=== PATIENT | male | born 1960 | race Caucasian/White ===

== ENCOUNTER 2016-08-22 10:06 | Emergency (ER) | payer OTHER ==
--- NOTE | 2016-08-22 10:57 | DIAGNOSTIC IMAGING REPORT ---
PROCEDURE: XR RIBS UNILAT W/PA CHEST-RT INDICATION: TRAUMA/INJURY TECHNIQUE: Two views of the right ribs with single PA view chest. COMPARISON: None. FINDINGS: RIGHT RIBS: Fractures of the right tenth and eleventh ribs. No displacement. CHEST: Normal cardiomediastinal contour. Clear lungs without pleural effusion, pneumothorax, or contusion. There is an old healed fracture of the right tenth rib proximal to the current fracture. IMPRESSION: 1. Fractures of the right tenth and eleventh ribs.
--- NOTE | 2016-08-22 11:40 | ED NURSING NOTES ---
Clinical Report - Nurses [facility] [place] [address] 08/22/2016 10:09 [id number] Triage time 10:15. Acuity: LEVEL 4. Chief Complaint: FALL. --10:20 Charo Miguel R.N. 10:15 08/22/16. BP: 192/103. HR: 102. RR: 18. O2 saturation: 99%. Temp: 98.2 F. Pain level now: 11/26. --10:20 Charo Miguel R.N. Weight: 95.2 kg stated. Height/Length: 70 inches Per Patient. BMI: 30.1. --10:20 Charo Miguel R.N. Medications Ibuprofen Oral. --10:17 Charo Miguel R.N. Allergies No Known Drug Allergy. --10:18 Charo Miguel R.N. History Arrived by private vehicle. Historian: patient. Accompanied by family. ( Right mid flank/rib pain after fall 7 days ago, landing on [employer] box. Pt reports sneezing last night and feeling a pop, followed by excruciating 10/10 pain.). Trauma activation: Pre-hospital notification of patient arrival was not received. PAST MEDICAL HX: Tetanus status: up-to-date. SOCIAL HX: Alcohol use; consumes beer occasionally. No drug use. No infectious disease exposure. ABUSE ASSESSMENT: No report of abuse. FALL RISK ASSESSMENT: Fall risk assessment completed. No fall risk identified. NUTRITIONAL RISK ASSESSMENT: The nutritional risk assessment revealed no deficiencies. FUNCTIONAL ASSESSMENT: Functional assessment: no impairments noted. LEARNING NEEDS ASSESSMENT: The learning needs assessment revealed no barriers. SKIN INTEGRITY ASSESSMENT: Skin integrity risk assessment completed. No skin integrity risk identified. --10:20 Charo Miguel R.N. PROBLEMS: Nephrolithiasis. --10:19 Charo Miguel R.N. Interventions To treatment room. --10:20 Charo Miguel R.N. PHYSICAL ASSESSMENT GENERAL / NEURO / PSYCH: Alert. Oriented X 4. Appears in no acute distress. Appears in pain. RESPIRATORY: Chest wall tenderness. Decreased breath sounds. EXTREMITIES: Neuro-vascular status intact to the extremity. SKIN: Skin is warm and dry. BACK: ROM of the back is painless. Limited ROM in the back. ( right mid to lower ribs in the back). --10:26 Charo Miguel R.N. NURSING PROGRESS NOTES Reassurance given. Call light placed in reach. Patient waiting for evaluation. --10:20 Charo Miguel R.N. DISPOSITION / DISCHARGE Departure time: 1147. No learning barriers present. Discharge instructions provided and reviewed with the patient and family. Reviewed warnings (take slow, deep breaths hourly to avoid pna. do not bind ribs with lilly bandage). Reviewed medication(s) side effects, dosing and course information. Reviewed referrals. Patient and family verbalized understanding. Written instructions provided in Slovak. The patient was discharged by the physician. He was discharged home and accompanied by family. He left the Emergency Department ambulatory and via private vehicle. Family member driving. --11:49 Charo Miguel R.N. 11:48 08/22/16. BP: 178/96. HR: 92. RR: 18. O2 saturation: 99%. Pain level now: 07/27. --11:49 Charo Miguel R.N. Condition at departure: unchanged and stable. --11:49 Charo Miguel R.N. Locked/Released at 08/22/2016 11:50 by Charo Miguel R.N.
--- NOTE | 2016-08-22 11:40 | ED CLINICAL REPORT ---
Clinical Report - Physicians/Mid Levels [facility] [address] [place] [address] 08/22/2016 10:09 [id number] Time Seen: 10:15; initial patient contact. Arrived- By private vehicle. Historian- patient. HISTORY OF PRESENT ILLNESS Location of injuries- chest and mid back. Chief Complaint: Injury to CHEST and BACK. The injury occurred 1 week ago. Occurred at home. Fell while walking (slipped and struck R posterior lower ribs on a planter). The patient complains of moderate pain. No blow to the head, neck pain or loss of consciousness. Not dazed. REVIEW OF SYSTEMS No numbness, chest pain or laceration. He has had mild difficulty breathing. All systems otherwise negative, except as recorded above. PAST HISTORY Nephrolithiasis. Surgeries: No history of previous surgery. Medications: Ibuprofen Oral. Allergies: No Known Drug Allergy. SOCIAL HISTORY Never smoker. Occasional alcohol use. No drug use. ADDITIONAL NOTES The nursing notes have been reviewed. PHYSICAL EXAM Vital Signs: 08/22/2016 10:15 BP: 192/103. HR: 102. RR: 18. O2 saturation: 99%. Temp: 98.2 F. Pain level now: 1010. Have been reviewed. Hypertensive. Tachycardic. Respiratory rate normal. Temperature normal. Oxygen saturation normal. Appearance: Alert. Oriented X3. Neck: Painless ROM. CVS: Heart sounds normal. Rate normal. Rhythm normal. Respiratory: No respiratory distress. Chest wall injury: moderate tenderness and small ecchymosis located in the middle, right and posterior chest. No swelling. No laceration. No abrasion. No deformity. No splinting present. No paradoxical movement. Breath sounds normal. Back: No vertebral point tenderness. Skin: Skin intact. Skin warm and dry. Neuro: Oriented X 3. LABS, X-RAYS, AND EKG Sternum / Ribs X-rays: On the right, 10th and 11th rib fracture(s) present posteriorly. Views: right ribs. PA of chest. Technique: good. The X-rays were independently viewed by me and interpreted contemporaneously by me. Prior films were not available for comparison. Interpretation time: 11:05. PROGRESS AND PROCEDURES Disposition: Discharged home in good and improved condition. Condition: good. CLINICAL IMPRESSION Multiple right rib fractures (10 and 11). INSTRUCTIONS Apply ice for 20 minutes followed by heat 20 minutes until better. Don't apply ice directly to skin. Do not work (Off work 08/23/16 and 08/24/16). Your Current Medications: STOP TAKING THE FOLLOWING MEDICATIONS: Ibuprofen Oral. Prescription Medications: Hydrocodone/APAP 5mg / 325mg: take 1 orally every 6 hours as needed for pain. Dispense twenty (20). No refill. (Do not take while driving) Diclofenac 50 mg tablets: take 1 tablet orally every 8 hours as needed for pain or stiffness. Dispense thirty (30). No refill. Follow-up: Follow up with your doctor in about three days. Call for an appointment. Screening today revealed the patient's blood pressure to be in the hypertensive range. The patient should follow up with a primary care provider for blood pressure management. (Electronically signed by Shlomo Johnson Dr. 08/22/2016 15:10)
--- NOTE | 2016-08-22 11:40 | ED CLINICAL REPORT ---
Clinical Report - Physicians/Mid Levels [facility] [address] [place] [address] 08/22/2016 10:09 [id number] Time Seen: 10:15; initial patient contact. Arrived- By private vehicle. Historian- patient. HISTORY OF PRESENT ILLNESS Location of injuries- chest and mid back. Chief Complaint: Injury to CHEST and BACK. The injury occurred 1 week ago. Occurred at home. Fell while walking (slipped and struck R posterior lower ribs on a planter). The patient complains of moderate pain. No blow to the head, neck pain or loss of consciousness. Not dazed. REVIEW OF SYSTEMS No numbness, chest pain or laceration. He has had mild difficulty breathing. All systems otherwise negative, except as recorded above. PAST HISTORY Nephrolithiasis. Surgeries: No history of previous surgery. Medications: Ibuprofen Oral. Allergies: No Known Drug Allergy. SOCIAL HISTORY Never smoker. Occasional alcohol use. No drug use. ADDITIONAL NOTES The nursing notes have been reviewed. PHYSICAL EXAM Vital Signs: 08/22/2016 10:15 BP: 192/103. HR: 102. RR: 18. O2 saturation: 99%. Temp: 98.2 F. Pain level now: 1010. Have been reviewed. Hypertensive. Tachycardic. Respiratory rate normal. Temperature normal. Oxygen saturation normal. Appearance: Alert. Oriented X3. Neck: Painless ROM. CVS: Heart sounds normal. Rate normal. Rhythm normal. Respiratory: No respiratory distress. Chest wall injury: moderate tenderness and small ecchymosis located in the middle, right and posterior chest. No swelling. No laceration. No abrasion. No deformity. No splinting present. No paradoxical movement. Breath sounds normal. Back: No vertebral point tenderness. Skin: Skin intact. Skin warm and dry. Neuro: Oriented X 3. LABS, X-RAYS, AND EKG Sternum / Ribs X-rays: On the right, 10th and 11th rib fracture(s) present posteriorly. Views: right ribs. PA of chest. Technique: good. The X-rays were independently viewed by me and interpreted contemporaneously by me. Prior films were not available for comparison. Interpretation time: 11:05. PROGRESS AND PROCEDURES Disposition: Discharged home in good and improved condition. Condition: good. CLINICAL IMPRESSION Multiple right rib fractures (10 and 11). INSTRUCTIONS Apply ice for 20 minutes followed by heat 20 minutes until better. Don't apply ice directly to skin. Do not work (Off work 08/23/16 and 08/24/16). Your Current Medications: STOP TAKING THE FOLLOWING MEDICATIONS: Ibuprofen Oral. Prescription Medications: Hydrocodone/APAP 5mg / 325mg: take 1 orally every 6 hours as needed for pain. Dispense twenty (20). No refill. (Do not take while driving) Diclofenac 50 mg tablets: take 1 tablet orally every 8 hours as needed for pain or stiffness. Dispense thirty (30). No refill. Follow-up: Follow up with your doctor in about three days. Call for an appointment. Screening today revealed the patient's blood pressure to be in the hypertensive range. The patient should follow up with a primary care provider for blood pressure management. (Electronically signed by Shlomo Johnson Dr. 08/22/2016 15:10)
--- NOTE | 2016-08-22 11:40 | ED NURSING NOTES ---
Clinical Report - Nurses [facility] [place] [address] 08/22/2016 10:09 [id number] TRI[facility] Triage time 10:15. Acuity: LEVEL 4. Chief Complaint: FALL. --10:20 Charo Miguel R.N. 10:15 08/22/16. BP: 192/103. HR: 102. RR: 18. O2 saturation: 99%. Temp: 98.2 F. Pain level now: 11/26. --10:20 Charo Miguel R.N. Weight: 95.2 kg stated. Height/Length: 70 inches Per Patient. BMI: 30.1. --10:20 Charo Miguel R.N. Medications Ibuprofen Oral. --10:17 Charo Miguel R.N. Allergies No Known Drug Allergy. --10:18 Charo Miguel R.N. History Arrived by private vehicle. Historian: patient. Accompanied by family. ( Right mid flank/rib pain after fall 7 days ago, landing on [employer] box. Pt reports sneezing last night and feeling a pop, followed by excruciating 10/10 pain.). Trauma activation: Pre-hospital notification of patient arrival was not received. PAST MEDICAL HX: Tetanus status: up-to-date. SOCIAL HX: Alcohol use; consumes beer occasionally. No drug use. No infectious disease exposure. ABUSE ASSESSMENT: No report of abuse. FALL RISK ASSESSMENT: Fall risk assessment completed. No fall risk identified. NUTRITIONAL RISK ASSESSMENT: The nutritional risk assessment revealed no deficiencies. FUNCTIONAL ASSESSMENT: Functional assessment: no impairments noted. LEARNING NEEDS ASSESSMENT: The learning needs assessment revealed no barriers. SKIN INTEGRITY ASSESSMENT: Skin integrity risk assessment completed. No skin integrity risk identified. --10:20 Charo Miguel R.N. PROBLEMS: Nephrolithiasis. --10:19 Charo Miguel R.N. Interventions To treatment room. --10:20 Charo Miguel R.N. PHYSICAL ASSESSMENT GENERAL / NEURO / PSYCH: Alert. Oriented X 4. Appears in no acute distress. Appears in pain. RESPIRATORY: Chest wall tenderness. Decreased breath sounds. EXTREMITIES: Neuro-vascular status intact to the extremity. SKIN: Skin is warm and dry. BACK: ROM of the back is painless. Limited ROM in the back. ( right mid to lower ribs in the back). --10:26 Charo Miguel R.N. NURSING PROGRESS NOTES Reassurance given. Call light placed in reach. Patient waiting for evaluation. --10:20 Charo Miguel R.N. DISPOSITION / DISCHARGE Departure time: 1147. No learning barriers present. Discharge instructions provided and reviewed with the patient and family. Reviewed warnings (take slow, deep breaths hourly to avoid pna. do not bind ribs with lilly bandage). Reviewed medication(s) side effects, dosing and course information. Reviewed referrals. Patient and family verbalized understanding. Written instructions provided in Portuguese. The patient was discharged by the physician. He was discharged home and accompanied by family. He left the Emergency Department ambulatory and via private vehicle. Family member driving. --11:49 Charo Miguel R.N. 11:48 08/22/16. BP: 178/96. HR: 92. RR: 18. O2 saturation: 99%. Pain level now: 07/27. --11:49 Charo Miguel R.N. Condition at departure: unchanged and stable. --11:49 Charo Miguel R.N. Locked/Released at 08/22/2016 11:50 by Charo Miguel R.N.
--- NOTE | 2016-08-22 11:40 | ED ORDER SUMMARY ---
..... Patient: MELISSA MCDOWELL OrderSheet [facility] VisitID: [id number] [address] [place] [address] 55y, M Registration Date/Time: 08/22/2016 ORDER SHEET Weight: 95.2 kg (stated) Allergies: No Known Drug Allergy GENERAL ORDERS: Ribs Unilat w PA Chest Right Urgent (10:24 08/22/2016 Abraham Mcdaniels) (Ack 10:33 Roderick) (10:40 Roderick) MEDICATION ORDERS: IV FLUIDS: ORDER SHEET NOTES: [Electronically signed by Charo Miguel R.N. (11:50 08/22/2016)] [Electronically signed by Shlomo Johnson Dr. (15:10 08/22/2016)] [Electronically locked/signed by Charo Miguel R.N. (11:50 08/22/2016)]
--- NOTE | 2016-08-22 11:40 | ED ORDER SUMMARY ---
..... Patient: MELISSA MCDOWELL OrderSheet [facility] VisitID: [id number] [address] [place] [address] 55y, M Registration Date/Time: 08/22/2016 ORDER SHEET Weight: 95.2 kg (stated) Allergies: No Known Drug Allergy GENERAL ORDERS: Ribs Unilat w PA Chest Right Urgent (10:24 08/22/2016 Abraham Mcdaniels) (Ack 10:33 Roderick) (10:40 Roderick) MEDICATION ORDERS: IV FLUIDS: ORDER SHEET NOTES: [Electronically signed by Charo Miguel R.N. (11:50 08/22/2016)] [Electronically signed by Shlomo Johnson Dr. (15:10 08/22/2016)] [Electronically locked/signed by Charo Miguel R.N. (11:50 08/22/2016)]
--- NOTE | 2016-08-22 15:10 | ED MED RECONCILIATION SUMMARY ---
Patient: MELISSA MCDOWELL Medication Reconciliation Report [facility] VisitID: [id number] [address] [place] [address] 55y, M Registration Date/Time: 08/22/2016 Weight: 95.2 kg Height/Length: 70 in. BMI: 30.1 ALLERGIES: No Known Drug Allergy The patient's Home Medications are listed below: STOP TAKING THE FOLLOWING MEDICATIONS: Ibuprofen Oral The source(s) of the original Home Medication information: Not obtained. The following Medications were given to the patient in the Emergency Department: None. The following Medications were prescribed to the patient: Hydrocodone/APAP 5mg / 325mg: take 1 orally every 6 hours as needed for pain. Dispense twenty (20). No refill.(Do not take while driving) -- Shlomo Johnson Dr. Diclofenac 50 mg tablets: take 1 tablet orally every 8 hours as needed for pain or stiffness. Dispense thirty (30). No refill. -- Shlomo Johnson Dr.
--- NOTE | 2016-08-22 15:10 | ED DISCHARGE INSTRUCTIONS ---
Patient: MELISSA MCDOWELL General Instructions [facility] VisitID: [id number] [place] [address] 55y, M Registration Date/Time: 08/22/2016 Multiple right rib fractures (10 and 11). INSTRUCTIONS Apply ice for 20 minutes followed by heat 20 minutes until better. Don't apply ice directly to skin. Do not work (Off work 08/23/16 and 08/24/16). Your Current Medications: STOP TAKING THE FOLLOWING MEDICATIONS: Ibuprofen Oral. Prescription Medications: Hydrocodone/APAP 5mg / 325mg: take 1 orally every 6 hours as needed for pain. Dispense twenty (20). No refill. (Do not take while driving) Diclofenac 50 mg tablets: take 1 tablet orally every 8 hours as needed for pain or stiffness. Dispense thirty (30). No refill. Follow-up: Follow up with your doctor in about three days. Call for an appointment. Screening today revealed the patient's blood pressure to be in the hypertensive range. The patient should follow up with a primary care provider for blood pressure management. ADDITIONAL INFORMATION Hydrocodone Bitartrate, Acetaminophen Oral tablet What is this medicine? ACETAMINOPHEN; HYDROCODONE (a set a ALYSSA fabian fen; violetta droe KOE done) is a pain reliever. It is used to treat mild to moderate pain. How should I use this medicine? Take this medicine by mouth. Swallow it with a full glass of water. Follow the directions on the prescription label. If the medicine upsets your stomach, take the medicine with food or milk. Do not take more than you are told to take. Talk to your pecan picker regarding the use of this medicine in children. This medicine is not approved for use in children. What side effects may I notice from receiving this medicine? Side effects that you should report to your doctor or health rn complex care as soon as possible: allergic reactions like skin rash, itching or hives, swelling of the face, lips, or tongue breathing problems confusion feeling faint or lightheaded, falls stomach pain yellowing of the eyes or skin Side effects that usually do not require medical attention (report to your doctor or health rn complex care if they continue or are bothersome): nausea, vomiting stomach upset What may interact with this medicine? alcohol antihistamines isoniazid medicines for depression, anxiety, or psychotic disturbances medicines for sleep muscle relaxants naltrexone narcotic medicines (opiates) for pain phenobarbital ritonavir tramadol What if I miss a dose? If you miss a dose, take it as soon as you can. If it is almost time for your next dose, take only that dose. Do not take double or extra doses. Where should I keep my medicine? Keep out of the reach of children. This medicine can be abused. Keep your medicine in a safe place to protect it from theft. Do not share this medicine with anyone. Selling or giving away this medicine is dangerous and against the law. Store at room temperature between 15 and 30 degrees C (59 and 86 degrees F). Protect from light. Keep container tightly closed. Throw away any unused medicine after the expiration date. Discard unused medicine and used packaging carefully. Pets and children can be harmed if they find used or lost packages. What should I tell my health care provider before I take this medicine? They need to know if you have any of these conditions: brain tumor Crohn's disease, inflammatory bowel disease, or ulcerative colitis drink more than 3 alcohol-containing drinks per day drug abuse or addiction head injury heart or circulation problems kidney disease or problems going to the bathroom liver disease lung disease, asthma, or breathing problems an unusual or allergic reaction to acetaminophen, hydrocodone, other opioid analgesics, other medicines, foods, dyes, or preservatives or trying to get breast-feeding What should I watch for while using this medicine? Tell your doctor or health rn complex care if your pain does not go away, if it gets worse, or if you have new or a different type of pain. You may develop tolerance to the medicine. Tolerance means that you will need a higher dose of the medicine for pain relief. Tolerance is normal and is expected if you take the medicine for a long time. Do not suddenly stop taking your medicine because you may develop a severe reaction. Your body becomes used to the medicine. This does NOT mean you are addicted. Addiction is a behavior related to getting and using a drug for a non-medical reason. If you have pain, you have a medical reason to take pain medicine. Your doctor will tell you how much medicine to take. If your doctor wants you to stop the medicine, the dose will be slowly lowered over time to avoid any side effects. You may get drowsy or dizzy when you first start taking the medicine or change doses. Do not drive, use machinery, or do anything that may be dangerous until you know how the medicine affects you. Stand or sit up slowly. There are different types of narcotic medicines (opiates) for pain. If you take more than one type at the same time, you may have more side effects. Give your health care provider a list of all medicines you use. Your doctor will tell you how much medicine to take. Do not take more medicine than directed. Call emergency for help if you have problems breathing. The medicine will cause constipation. Try to have a bowel movement at least every 2 to 3 days. If you do not have a bowel movement for 3 days, call your doctor or health rn complex care. Too much acetaminophen can be very dangerous. Do not take Tylenol (acetaminophen) or medicines that contain acetaminophen with this medicine. Many non-prescription medicines contain acetaminophen. Always read the labels carefully. You have been given the following additional information: Hydrocodone Bitartrate, Acetaminophen Oral tablet Do not work (Off work 08/23/16 and 08/24/16). (Electronically signed by Shlomo Johnson Dr. 08/22/2016 15:10)
--- NOTE | 2016-08-22 15:10 | ED DISCHARGE INSTRUCTIONS ---
Patient: MELISSA MCDOWELL General Instructions [facility] VisitID: [id number] [place] [address] 55y, M Registration Date/Time: 08/22/2016 Multiple right rib fractures (10 and 11). INSTRUCTIONS Apply ice for 20 minutes followed by heat 20 minutes until better. Don't apply ice directly to skin. Do not work (Off work 08/23/16 and 08/24/16). Your Current Medications: STOP TAKING THE FOLLOWING MEDICATIONS: Ibuprofen Oral. Prescription Medications: Hydrocodone/APAP 5mg / 325mg: take 1 orally every 6 hours as needed for pain. Dispense twenty (20). No refill. (Do not take while driving) Diclofenac 50 mg tablets: take 1 tablet orally every 8 hours as needed for pain or stiffness. Dispense thirty (30). No refill. Follow-up: Follow up with your doctor in about three days. Call for an appointment. Screening today revealed the patient's blood pressure to be in the hypertensive range. The patient should follow up with a primary care provider for blood pressure management. ADDITIONAL INFORMATION Hydrocodone Bitartrate, Acetaminophen Oral tablet What is this medicine? ACETAMINOPHEN; HYDROCODONE (a set a ALYSSA fabian fen; violetta droe KOE done) is a pain reliever. It is used to treat mild to moderate pain. How should I use this medicine? Take this medicine by mouth. Swallow it with a full glass of water. Follow the directions on the prescription label. If the medicine upsets your stomach, take the medicine with food or milk. Do not take more than you are told to take. Talk to your programmer business regarding the use of this medicine in children. This medicine is not approved for use in children. What side effects may I notice from receiving this medicine? Side effects that you should report to your doctor or health customer care manager as soon as possible: allergic reactions like skin rash, itching or hives, swelling of the face, lips, or tongue breathing problems confusion feeling faint or lightheaded, falls stomach pain yellowing of the eyes or skin Side effects that usually do not require medical attention (report to your doctor or health customer care manager if they continue or are bothersome): nausea, vomiting stomach upset What may interact with this medicine? alcohol antihistamines isoniazid medicines for depression, anxiety, or psychotic disturbances medicines for sleep muscle relaxants naltrexone narcotic medicines (opiates) for pain phenobarbital ritonavir tramadol What if I miss a dose? If you miss a dose, take it as soon as you can. If it is almost time for your next dose, take only that dose. Do not take double or extra doses. Where should I keep my medicine? Keep out of the reach of children. This medicine can be abused. Keep your medicine in a safe place to protect it from theft. Do not share this medicine with anyone. Selling or giving away this medicine is dangerous and against the law. Store at room temperature between 15 and 30 degrees C (59 and 86 degrees F). Protect from light. Keep container tightly closed. Throw away any unused medicine after the expiration date. Discard unused medicine and used packaging carefully. Pets and children can be harmed if they find used or lost packages. What should I tell my health care provider before I take this medicine? They need to know if you have any of these conditions: brain tumor Crohn's disease, inflammatory bowel disease, or ulcerative colitis drink more than 3 alcohol-containing drinks per day drug abuse or addiction head injury heart or circulation problems kidney disease or problems going to the bathroom liver disease lung disease, asthma, or breathing problems an unusual or allergic reaction to acetaminophen, hydrocodone, other opioid analgesics, other medicines, foods, dyes, or preservatives or trying to get breast-feeding What should I watch for while using this medicine? Tell your doctor or health customer care manager if your pain does not go away, if it gets worse, or if you have new or a different type of pain. You may develop tolerance to the medicine. Tolerance means that you will need a higher dose of the medicine for pain relief. Tolerance is normal and is expected if you take the medicine for a long time. Do not suddenly stop taking your medicine because you may develop a severe reaction. Your body becomes used to the medicine. This does NOT mean you are addicted. Addiction is a behavior related to getting and using a drug for a non-medical reason. If you have pain, you have a medical reason to take pain medicine. Your doctor will tell you how much medicine to take. If your doctor wants you to stop the medicine, the dose will be slowly lowered over time to avoid any side effects. You may get drowsy or dizzy when you first start taking the medicine or change doses. Do not drive, use machinery, or do anything that may be dangerous until you know how the medicine affects you. Stand or sit up slowly. There are different types of narcotic medicines (opiates) for pain. If you take more than one type at the same time, you may have more side effects. Give your health care provider a list of all medicines you use. Your doctor will tell you how much medicine to take. Do not take more medicine than directed. Call emergency for help if you have problems breathing. The medicine will cause constipation. Try to have a bowel movement at least every 2 to 3 days. If you do not have a bowel movement for 3 days, call your doctor or health customer care manager. Too much acetaminophen can be very dangerous. Do not take Tylenol (acetaminophen) or medicines that contain acetaminophen with this medicine. Many non-prescription medicines contain acetaminophen. Always read the labels carefully. You have been given the following additional information: Hydrocodone Bitartrate, Acetaminophen Oral tablet Do not work (Off work 08/23/16 and 08/24/16). (Electronically signed by Shlomo Johnson Dr. 08/22/2016 15:10)
--- NOTE | 2016-08-22 15:10 | ED MED RECONCILIATION SUMMARY ---
Patient: MELISSA MCDOWELL Medication Reconciliation Report [facility] VisitID: [id number] [address] [place] [address] 55y, M Registration Date/Time: 08/22/2016 Weight: 95.2 kg Height/Length: 70 in. BMI: 30.1 ALLERGIES: No Known Drug Allergy The patient's Home Medications are listed below: STOP TAKING THE FOLLOWING MEDICATIONS: Ibuprofen Oral The source(s) of the original Home Medication information: Not obtained. The following Medications were given to the patient in the Emergency Department: None. The following Medications were prescribed to the patient: Hydrocodone/APAP 5mg / 325mg: take 1 orally every 6 hours as needed for pain. Dispense twenty (20). No refill.(Do not take while driving) -- Shlomo Johnson Dr. Diclofenac 50 mg tablets: take 1 tablet orally every 8 hours as needed for pain or stiffness. Dispense thirty (30). No refill. -- Shlomo Johnson Dr.
--- NOTE | 2016-08-22 15:10 | ED MAR SUMMARY ---
..... Medication Administration Record [facility] [address] [place], [place] [id number] Patient: MELISSA MCDOWELL Visit ID: [id number] 55y, M Weight: 95.2 kg Height/Length: 70 in BMI: 30.1 ALLERGIES: No Known Drug Allergy
--- NOTE | 2016-08-22 15:10 | ED MAR SUMMARY ---
..... Medication Administration Record [facility] [address] [place], [place] [id number] Patient: MELISSA MCDOWELL Visit ID: [id number] 55y, M Weight: 95.2 kg Height/Length: 70 in BMI: 30.1 ALLERGIES: No Known Drug Allergy
== END 2016-08-22 11:48 | disposition home or self-care (01) ==
LOC: ED SRH 10:06
DX: S22.41XA Multiple fractures of ribs, right side, initial encounter for closed fracture (principal); W01.190A Fall on same level from slipping, tripping and stumbling with subsequent striking against furniture, initial encounter; Y93.01 Activity, walking, marching and hiking; Y99.9 Unspecified external cause status; Y92.009 Unspecified place in unspecified non-institutional (private) residence as the place of occurrence of the external cause